=== PATIENT | male | born 1945 | race Caucasian/White ===

== ENCOUNTER 2021-10-07 08:43 | Outpatient (CLI) | payer MEDICARE ==
[2021-10-07 21:41] LABS: SARS-CoV-2 PCR by NAA Not Detected (NotDetected)
== END 2021-10-07 08:44 | disposition home or self-care (01) ==
LOC: CSHLAB 08:43
PROVIDERS: ATTEND Otolaryngology Otolaryngic Allergy
DX: Z20.822 Contact with and (suspected) exposure to COVID-19 (principal)
CPT/HCPCS: U0003; U0005

== ENCOUNTER 2021-10-09 10:41 | Outpatient (CLI) | payer MEDICARE | END 2021-10-09 10:42 | disposition home or self-care (01) | LOC: CSHRAD 10:41 | PROVIDERS: ATTEND Otolaryngology Otolaryngic Allergy | DX: R13.12 Dysphagia, oropharyngeal phase (principal); R13.11 Dysphagia, oral phase; R63.30 Feeding difficulties, unspecified; I69.891 Dysphagia following other cerebrovascular disease | CPT/HCPCS: 74220; 74230 ==

== ENCOUNTER 2023-08-20 08:25 | Outpatient (CLI) | payer MEDICARE | END 2023-08-20 08:26 | disposition home or self-care (01) | LOC: CSHCT 08:25 | PROVIDERS: ATTEND Otolaryngology | DX: K12.1 Other forms of stomatitis (principal) | CPT/HCPCS: 70491; 82565 ==

== ENCOUNTER 2024-01-27 08:02 | Outpatient (CLI) | payer MEDICARE | END 2024-01-27 08:03 | disposition home or self-care (01) | LOC: CSHMRI 08:02 | PROVIDERS: ATTEND Orthopaedic Surgery | DX: M19.011 Primary osteoarthritis, right shoulder (principal); M75.111 Incomplete rotator cuff tear or rupture of right shoulder, not specified as traumatic; M67.911 Unspecified disorder of synovium and tendon, right shoulder ==